=== PATIENT | female | born 1980 | race Caucasian/White ===

== ENCOUNTER 2018-06-24 10:04 | Day surgery (SDC) | payer OTHER ==
[~2018-06-24 10:04] MED LIST: PROPOFOL INJ 200 MG/20 ML VIAL IV ONE
[2018-06-24 12:17] VITALS: BP 153/93
--- NOTE | 2018-06-24 13:09 | Operative Report ---
Operative Report DATE OF SURGERY: 06/24/18 Operative Report: The risks, benefits and alternatives of the procedure including the risk of bleeding, perforation requiring surgery have been explained to the patient in detail and informed consent is obtained. Patient is brought back to the endoscopy suite and placed in the left, lateral decubital position. Timeout was called. Propofol medication is administered. Rectal examination is done which did not reveal any masses, tears or fissures. An Olympus videoscope was introduced into the patient's rectum. The scope was then carefully advanced all the way to the cecum. The cecum was identified by the usual anatomical landmarks including the ileocecal valve as well as the appendiceal orifice. Photodocumentation is obtained. The scope was then sequentially pulled back via the various segments of the colon including the ascending colon, hepatic flexure, transverse colon, splenic flexure, descending colon and finally into the rectosigmoid portions of the colon. Retroflexion maneuver is performed. PREOPERATIVE DIAGNOSIS: Change in bowel habits POSTOPERATIVE DIAGNOSIS: Large pedunculated polyp noted in the ascending colon that is removed via snare polypectomy. The polyp is retrieved. 2 endoclips were used to secure the base of the polypectomy to reduce the risk of post polypectomy bleeding. Small transverse colon polyp that was removed via snare polypectomy as well. Right colon Inflammation status post biopsy. Internal hemorrhoids OPERATION: Colonoscopy with snare polypectomy. Colonoscopy with biopsy SURGEON: SHER CORTEZ ANESTHESIA: LMAC TISSUE REMOVED OR ALTERED: As noted above. COMPLICATIONS: None. ESTIMATED BLOOD LOSS: None. INTRAOPERATIVE FINDINGS: As noted above. PROCEDURE: Patient tolerated the procedure well. No immediate postprocedure complications are noted. Patient discharged in good condition. Discharge date 06/24/2018. Discharge diet: Regular. Discharge activity: Regular. 2-3-week follow-up to discuss findings. Patient is instructed to call the office or proceed to the emergency room should there be any further proximal questions. Wait on the pathology. 6-month surveillance colonoscopy. Depending on the pathology of the polyp.
== END 2018-06-24 12:15 | disposition home or self-care (01) ==
LOC: END 10:04
PROVIDERS: ATTEND Internal Medicine Gastroenterology
DX: D01.0 Carcinoma in situ of colon (principal); D12.3 Benign neoplasm of transverse colon; E66.01 Morbid (severe) obesity due to excess calories; Z68.39 Body mass index [BMI] 39.0-39.9, adult; R00.2 Palpitations
CPT/HCPCS: 45380; 45385; 88305 ×2; J2704; 811

== ENCOUNTER 2018-07-22 11:14 | Day surgery (SDC) | payer OTHER ==
--- NOTE | 2018-07-22 12:41 | Operative Report ---
Operative Report DATE OF SURGERY: 07/22/18 Operative Report: The risks benefits and alternatives of the procedure explained to the patient in detail and informed consent is obtained.A GIF Olympus video scope was inserted into the patient's mouth and hypopharynx, the esophagus is identified intubated and insufflated, the scope was then advanced through the esophagus stomach and duodenum, retroflexion maneuver is done, the esophagus stomach and first and second portions of the duodenum examined. PREOPERATIVE DIAGNOSIS: Left upper quadrant pain, abdominal bloating dyspepsia POSTOPERATIVE DIAGNOSIS: Hiatal hernia. Gastritis status post biopsy for Helicobacter pylori OPERATION: EGD with biopsy SURGEON: SHER CORTEZ ANESTHESIA: LMAC TISSUE REMOVED OR ALTERED: As noted above. COMPLICATIONS: None. ESTIMATED BLOOD LOSS: None. INTRAOPERATIVE FINDINGS: As noted above. PROCEDURE: Patient tolerated the procedure well. No immediate postprocedure complications are noted. Patient discharged in good condition. Discharge date 07/22/2018. Discharge diet: Regular. Discharge activity: Regular. 2-3-week follow-up to discuss findings. Patient is instructed to call the office or proceed to the emergency room should there be any further problems or questions. Wait on the pathology.
[2018-07-22 13:15] VITALS: BP 124/79
== END 2018-07-22 12:55 | disposition home or self-care (01) ==
LOC: END 11:14
PROVIDERS: ATTEND Internal Medicine Gastroenterology
DX: K44.9 Diaphragmatic hernia without obstruction or gangrene (principal); K29.50 Unspecified chronic gastritis without bleeding; E66.01 Morbid (severe) obesity due to excess calories; Z85.038 Personal history of other malignant neoplasm of large intestine; Z68.39 Body mass index [BMI] 39.0-39.9, adult; R00.2 Palpitations
CPT/HCPCS: 43239; 88342 ×2; 88305 ×2; J2704; 731

== ENCOUNTER 2018-12-30 07:38 | Day surgery (SDC) | payer OTHER ==
[2018-12-30 09:58] VITALS: BP 125/81
--- NOTE | 2018-12-30 14:21 | Operative Report ---
Operative Report DATE OF SURGERY: 12/30/18 Operative Report: Risks, benefits and alternatives of the procedure including the risk of bleeding, perforation requiring surgery have been explained to the patient in detail and informed consent has been obtained. Patient is placed in a left, lateral decubital position. Timeout was called. Propofol medication is administered. Rectal examination is done which did not reveal any masses, tears or fissures. An Olympus videoscope was introduced into the patient's rectum. The scope was then carefully advanced all the way into the cecum. Cecum was identified by the usual anatomical landmarks of the ileocecal valve versus the appendiceal office. Photodocumentation is obtained. Scope was then sequentially pulled back via the various segments of the colon including the ascending colon, hepatic flexure, transverse colon, splenic flexure, descending colon finding to the rectosigmoid portions of the colon. Retroflexion maneuvers performed. PREOPERATIVE DIAGNOSIS: Personal history of polyps, change in bowel habits POSTOPERATIVE DIAGNOSIS: Small polyp noted as well as some areas of mild inflammation right side of the colon status post biopsy OPERATION: Colonoscopy with biopsy SURGEON: SHER CORTEZ ANESTHESIA: LMAC TISSUE REMOVED OR ALTERED: As noted above. COMPLICATIONS: None. ESTIMATED BLOOD LOSS: None. INTRAOPERATIVE FINDINGS: As noted above. PROCEDURE: Patient tolerated the procedure well. No immediate postprocedure complications are noted. Patient is discharged in good condition. Discharge date 12/30/2018. Discharge diet: Regular. Discharge activity: Regular. 2 to 3-week follow-up to discuss findings. Patient is instructed to call the office or proceed to the emergency room should there be any further questions. Wait on the pathology. 5-year surveillance colonoscopy.
== END 2018-12-30 10:00 | disposition home or self-care (01) ==
LOC: END 07:38
PROVIDERS: ATTEND Internal Medicine Gastroenterology
DX: D12.6 Benign neoplasm of colon, unspecified (principal); Z86.010 Personal history of colon polyps; K21.9 Gastro-esophageal reflux disease without esophagitis; K52.9 Noninfective gastroenteritis and colitis, unspecified; E66.01 Morbid (severe) obesity due to excess calories; R00.2 Palpitations; Z68.39 Body mass index [BMI] 39.0-39.9, adult
CPT/HCPCS: 45380; 88305 ×2; J2704; 811